=== PATIENT | male | born 1985 | race Native Hawaiian/Other Pacific Islander ===

== ENCOUNTER → 2023-12-27 07:16 | Outpatient (CLI) | payer OTHER, SELFPAY ==
--- NOTE | 2023-12-27 07:18 | DI.US.S_ITS ---
PROCEDURE: US RENAL COMPLETE INDICATIONS: Retention of urine, unspecified TECHNIQUE: Real-time scanning was performed of the kidneys and bladder, with image documentation. COMPARISON: None. FINDINGS: Kidneys: Kidneys are normal in size. Right kidney measures 11 cm long; left kidney measures 10.8 cm long. Right renal cortical thickness is 1.4 cm; left renal cortical thickness is 1.6 cm. Renal cortical echotexture is normal. No hydronephrosis or nephrolithiasis. No suspicious solid mass lesions. Bladder: Pre-void bladder volume is 541 mL. Post-void residual is 0 mL. Pre-void images demonstrate no intraluminal masses or stones. On pre-void images, bilateral ureteral jets are noted with color Doppler interrogation. (Of note, ureteral jets may not be detectable in up to 25% of cases due to insufficient differences in specific gravity between ureteral and bladder urine). Miscellaneous: No free pelvic fluid. IMPRESSION: Normal appearance of the kidneys and urinary bladder. No postvoid residual. Dictated by: Cirilo Hallman M.D. on 12/27/2023 at 10:27 Approved by: Cirilo Hallman M.D. on 12/27/2023 at 10:33
== END ==
PROVIDERS: Referring Provider Physician Assistant Medical; Visit Provider Physician Assistant Medical
DX: R35.0 Frequency of micturition (principal); R33.9 Retention of urine, unspecified
CPT/HCPCS: 76770

== ENCOUNTER → 2024-06-06 13:33 | Outpatient (CLI) | payer OTHER, SELFPAY ==
--- NOTE | 2024-06-06 13:34 | DI.US.S_ITS ---
PROCEDURE: US ABDOMEN LIMITED INDICATIONS: SOFT TISSUE MASS TO MILDINE C/W UMBILICAL HERNIA TECHNIQUE: Real-time focused scanning was performed of the abdomen, with image documentation. Color Doppler was also utilized. COMPARISON: [facility], US, US RENAL COMPLETE, 12/27/2023, 7:26. FINDINGS: At the site of clinical concern, just superior to the umbilicus, there is a fat filled hernia there retracts with compression. The herniated material measures 4.1 x 2.3 x 4 cm. There is a 1.5 cm gap seen within the abdominal wall. IMPRESSION: Abdominal wall hernia seen, which contains fat. Surgical consultation is recommended. Dictated by: Kevin Garcia M.D. on 06/06/2024 at 13:22 Approved by: Kevin Garcia M.D. on 06/06/2024 at 13:23
== END ==
PROVIDERS: PCP Student in an Organized Health Care Education/Training Program; Referring Provider Student in an Organized Health Care Education/Training Program; Visit Provider Student in an Organized Health Care Education/Training Program
DX: K42.9 Umbilical hernia without obstruction or gangrene (principal)
CPT/HCPCS: 76705